=== PATIENT | female | born 1995 | race Caucasian/White ===

== ENCOUNTER 2016-12-15 17:57 | Emergency (ER) | payer MEDICARE | END 2016-12-15 21:08 | disposition home or self-care (01) | LOC: ER 17:57 | DX: O20.0 Threatened abortion (principal); N83.202 Unspecified ovarian cyst, left side; C75.1 Malignant neoplasm of pituitary gland; F31.9 Bipolar disorder, unspecified; F17.290 Nicotine dependence, other tobacco product, uncomplicated; Z79.899 Other long term (current) drug therapy | CPT/HCPCS: 36415; 76817; 80048; 81003; 84702; 85025; 86901; 87491; 87591; 87800 ==

== ENCOUNTER 2016-12-17 16:59 | Emergency (ER) | payer MEDICARE | END 2016-12-17 20:49 | disposition home or self-care (01) | LOC: ER 16:59 | DX: O20.0 Threatened abortion (principal) | CPT/HCPCS: 36415; 84702 ==